=== PATIENT | female | born 2000 | race Caucasian/White ===

== ENCOUNTER 2024-02-19 20:13 | Emergency (ER) | payer SELFPAY ==
[~2024-02-19] VITALS: Ht 160 cm; Wt 110.0 kg
[2024-02-19 20:37] VITALS: O2SAT 100
[2024-02-20] MEDS: METOCLOPRAMIDE HCL 10MG/2ML VIAL IV ONE (00:38)
[2024-02-20] MEDS: DIPHENHYDRAMINE 50MG/ML VIAL IV ONE (00:39)
[2024-02-20] MEDS: KETOROLAC 30MG/ML VIAL IM STA (00:39)
[2024-02-20] MEDS: SODIUM CHLORIDE 0.9% 1,000 ML IV ONE (00:39)
[2024-02-20 01:44] VITALS: BP 132/72; PULSE 100; RESP 20; TEMP 98.9
== END 2024-02-20 01:50 | disposition home or self-care (01) ==
LOC: ER 20:13
DX: G43.909 Migraine, unspecified, not intractable, without status migrainosus (principal)
CPT/HCPCS: 99285; 70450; 96374; 96361; 96375; 96372; J1200; J1885; J2765; J7030

== ENCOUNTER 2024-02-22 10:44 | Inpatient (IN) | payer SELFPAY ==
[~2024-02-22] VITALS: Ht 160 cm; Wt 104.3 kg
[2024-02-22 11:29] LABS: BASOPHILS % 0.4 % (0.0-2.0); EOSINOPHILS % 0.1 % (0.0-5.0); LYMPHOCYTES % 11.2 % (20.0-50.0); MEAN CORPUSCULAR HEMOGLOBIN 21.3 pg (28.0-32.0); MEAN CORPUSCULAR HGB CONC 30.6 g/dL (31.0-37.0); MEAN CORPUSCULAR VOLUME 69.4 fL (81.0-99.0); MEAN PLATELET VOLUME 7.3 fl (7.4-10.4); MONOCYTES % 3.4 % (2.0-8.0); NEUTROPHILS % 84.9 % (40.0-76.0); PLATELET 569 x1000/uL (130-400); RED BLOOD CELL COUNT 3.27 mill/uL (4.2-5.4); RED CELL DISTRIBUTION WIDTH 17.5 % (11.6-14.6); WHITE BLOOD COUNT 11.5 x1000/uL (4.5-11.0)
[2024-02-22 11:30] LABS: DIFFERENTIAL COMMENT 1
[2024-02-22] MEDS: CEFTRIAXONE 2GM/50ML 50 ML IV ONE (11:30)
[2024-02-22] MEDS: DIPHENHYDRAMINE 50MG/ML VIAL IV ONE (11:30)
[2024-02-22] MEDS: DEXAMETHASONE 4MG/ML 1ML VIAL IV ONE (11:30)
[2024-02-22] MEDS: METOCLOPRAMIDE HCL 10MG/2ML VIAL IV ONE (11:30)
[2024-02-22] MEDS: SODIUM CHLORIDE 0.9% 1000ML BAG (SEPSIS BOLUS) IV ONE (11:30)
[2024-02-22 11:32] LABS: ADD RBC MORPHOLOGY YES; HEMATOCRIT. 22.7 % (36.0-48.0)
[2024-02-22 12:03] LABS: HCG SCREEN NEGATIVE
[2024-02-22 12:06] LABS: ALANINE AMINOTRANSFERASE 12 IU/L (10-49); ALBUMIN 4.7 g/dL (3.2-4.8); ASPARTATE AMINOTRANSFERASE 17 IU/L (<34); BILIRUBIN TOTAL 0.3 mg/dL (0.1-1.0); CALCIUM 8.5 mg/dL (8.7-10.4); CARBON DIOXIDE 24 mEq/L (21-32); CHLORIDE 104 mEq/L (98-107); CREATININE 0.6 mg/dL (0.6-1.0); GLUCOSE 137 mg/dL (70-105); POTASSIUM 3.9 mEq/L (3.5-5.1); PROTEIN TOTAL 7.2 g/dL (6.0-8.3); SODIUM 136 mEq/L (136-145); UREA NITROGEN BLOOD 10 mg/dL (9-23)
[2024-02-22 12:07] LABS: PROTHROMBIN TIME 11.3 sec (9.6-11.0)
[2024-02-22 12:12] LABS: PLATELET ESTIMATE INCREASED
[2024-02-22 12:13] LABS: ANISOCYTOSIS 1+; HYPOCHROMASIA 1+; MICROCYTOSIS 3+
[2024-02-22 15:44] LABS: CLARITY URINE CLEAR (CLEAR); COLOR URINE YELLOW (YELLOW); GLUCOSE URINE NEGATIVE (NEGATIVE); KETONES URINE 1+ (NEGATIVE); LEUKOCYTE ESTERASE URINE NEGATIVE (NEGATIVE); NITRITE URINE NEGATIVE (NEGATIVE); OCCULT BLOOD URINE NEGATIVE (NEGATIVE); PROTEIN URINE TRACE (NEGATIVE); SPECIFIC GRAVITY URINE 1.029 (1.005-1.030)
[2024-02-22 16:00] LABS: *AMPHETAMINES SCREEN URINE NEGATIVE (NEGATIVE); *BARBITURATES SCREEN URINE NEGATIVE (NEGATIVE); *BENZODIAZEPINES SCREEN URINE NEGATIVE (NEGATIVE); *COCAINE SCREEN URINE NEGATIVE (NEGATIVE); CANNABINOID URINE SCREEN PRESUMPTIVE POSITIVE (NEGATIVE); ECSTASY MDMA SCREEN URINE NEGATIVE (NEGATIVE); METHADONE URINE SCREEN Neg (NEGATIVE); OPIATES URINE SCREEN NEGATIVE (NEGATIVE); PHENCYCLIDINE URINE SCREEN NEGATIVE (NEGATIVE)
[2024-02-22 16:29] LABS: BACTERIA URINE 1+; RBC URINE 0-2 /hpf (0-2); SQUAMOUS EPITHELIAL CELL URINE 1+ /lpf (RARE/1+)
[2024-02-22] MEDS: VANCOMYCIN 1G PREMIX 200 ML IV ONE (16:30)
[2024-02-22] MEDS ORDERED: GUAIFENESIN 200MG/10ML SUGAR FREE UDC PO PRN (16:45)
[2024-02-22] MEDS ORDERED: KETOROLAC 30MG/ML VIAL IV PRN (16:45)
[2024-02-22] MEDS ORDERED: MAGNESIUM/ALUMINUM HYDROXIDE/SIMETHICONE 30ML UDC PO PRN (16:45)
[2024-02-22] MEDS ORDERED: IPRATROPIUM/ALBUTEROL 0.5-3(2.5)MG/3ML NEB HHN PRN (16:45)
[2024-02-22] MEDS ORDERED: CLONIDINE 0.1MG TABLET PO PRN (16:45)
[2024-02-22] MEDS ORDERED: DOCUSATE SODIUM 100MG CAPSULE PO PRN (16:45)
[2024-02-22] MEDS ORDERED: ACETAMINOPHEN 325MG TABLET PO PRN ×2 (16:45)
[2024-02-22] MEDS ORDERED: ONDANSETRON HCL 4MG/2ML INJ IV PRN (16:45)
[2024-02-22 17:50] LABS: HEMATOCRIT 26.9 % (36.0-48.0); HEMOGLOBIN 8.5 g/dL (12.0-16.0)
[2024-02-22 18:23] LABS: CHOLESTEROL 188 mg/dL (<200); HDL CHOLESTEROL 41 mg/dL (>65); IRON 27 ug/dL (50-170); LDL CHOLESTEROL 127 mg/dL (5-100); PHOSPHORUS 1.6 mg/dL (2.5-4.9); T4 FREE 1.23 ng/dL (0.89-1.76); THYROID STIMULATING HORMONE 0.43 uIU/mL (0.55-4.78); TOTAL IRON BINDING CAPACITY 274 ug/dl (250-425); TRIGLYCERIDE 113 mg/dL (0-150)
[2024-02-22] MEDS: PANTOPRAZOLE SODIUM 40 MG/VIAL IV SCH (18:29)
[2024-02-22 18:32] LABS: HAPTOGLOBIN 242 mg/dL (40-280)
[2024-02-22 19:00] VITALS: BP 137/77; PULSE 105; RESP 20; TEMP 99.9
[2024-02-22 20:00] VITALS: BP 137/77; PULSE 105; RESP 20; TEMP 99.9
[2024-02-22 23:59] LABS: CREATINE KINASE 89 IU/L (34-145); CREATINE KINASE MB FRACTION 0.8 ng/mL (0.5-3.6)
[2024-02-23] VITALS: BP 116/66; PULSE 99; RESP 19; TEMP 97.9
[2024-02-23 00:11] LABS: TROPONIN I HIGH SENSITIVITY < 4 ng/L (3.0-34)
[2024-02-23 04:00] VITALS: BP 117/72; PULSE 93; RESP 19; TEMP 97.5
[2024-02-23] MEDS: VANCOMYCIN 1,250 MG in DEXT 5% WATER 250 ML IV SCH ×2 (05:03→14:45)
[2024-02-23 07:03] LABS: BASOPHILS % 0.5 % (0.0-2.0); DIFFERENTIAL COMMENT 0; HEMATOCRIT. 27.7 % (36.0-48.0); HEMOGLOBIN. 8.7 g/dL (12.0-16.0); LYMPHOCYTES % 11.1 % (20.0-50.0); MEAN CORPUSCULAR HEMOGLOBIN 22.7 pg (28.0-32.0); MEAN CORPUSCULAR HGB CONC 31.3 g/dL (31.0-37.0); MEAN CORPUSCULAR VOLUME 72.4 fL (81.0-99.0); MEAN PLATELET VOLUME 7.7 fl (7.4-10.4); MONOCYTES % 3.6 % (2.0-8.0); NEUTROPHILS % 84.8 % (40.0-76.0); PLATELET 545 x1000/uL (130-400); RED BLOOD CELL COUNT 3.82 mill/uL (4.2-5.4); WHITE BLOOD COUNT 13.4 x1000/uL (4.5-11.0)
[2024-02-23 07:29] LABS: ALANINE AMINOTRANSFERASE 11 IU/L (10-49); ALBUMIN 4.6 g/dL (3.2-4.8); ASPARTATE AMINOTRANSFERASE 14 IU/L (<34); BILIRUBIN TOTAL 0.3 mg/dL (0.1-1.0); CALCIUM 8.7 mg/dL (8.7-10.4); CARBON DIOXIDE 23 mEq/L (21-32); CHLORIDE 108 mEq/L (98-107); CREATINE KINASE 77 IU/L (34-145); CREATINE KINASE MB FRACTION 0.8 ng/mL (0.5-3.6); CREATININE 0.6 mg/dL (0.6-1.0); GLUCOSE 106 mg/dL (70-105); PHOSPHORUS 2.6 mg/dL (2.5-4.9); POTASSIUM 3.8 mEq/L (3.5-5.1); PROTEIN TOTAL 7.3 g/dL (6.0-8.3); SODIUM 139 mEq/L (136-145); UREA NITROGEN BLOOD 10 mg/dL (9-23)
[2024-02-23 07:38] LABS: TROPONIN I HIGH SENSITIVITY < 4 ng/L (3.0-34)
[2024-02-23 08:00] VITALS: BP 124/76; PULSE 84; RESP 20; TEMP 97.1
[2024-02-23] MEDS ORDERED: CEFTRIAXONE 2GM/50ML 50 ML IV SCH (09:00)
[2024-02-23] MEDS ORDERED: LIDOCAINE HCL 1% 10 MG/ML 10ML VIAL ONE (10:01)
[2024-02-23 12:11] LABS: CSF TOTAL VOLUME 10.5 mL
[2024-02-23] MEDS: IRON SUCROSE COMPLEX 100 MG/5 ML ML IV SCH (12:14)
[2024-02-23] MEDS: CEFTRIAXONE 2GM/50ML 50 ML IV SCH (12:14)
[2024-02-23 12:30] LABS: CSF APPEARANCE CLEAR, COLORLESS (CLEAR)
[2024-02-23 12:47] LABS: GLUCOSE CSF 84 mg/dL (41-75)
[2024-02-23 12:52] LABS: CSF WHITE BLOOD CELL 2 /cu mm (0-10)
[2024-02-23 16:00] VITALS: BP 122/67; PULSE 81; RESP 18; TEMP 97
[2024-02-23 20:00] VITALS: BP 108/71; PULSE 80; RESP 18; TEMP 97.2
[2024-02-23] MEDS: ATORVASTATIN CALCIUM 40MG TABLET PO SCH (21:11)
[2024-02-23] MEDS: CEFTRIAXONE 2GM/50ML 50ML IV SCH (23:56)
[2024-02-24] VITALS: BP 98/50; PULSE 92; RESP 19; TEMP 97.3
[2024-02-24 03:12] LABS: BASOPHILS % 1.1 % (0.0-2.0); DIFFERENTIAL COMMENT 0; EOSINOPHILS % 1.2 % (0.0-5.0); HEMATOCRIT. 26.6 % (36.0-48.0); HEMOGLOBIN. 8.2 g/dL (12.0-16.0); LYMPHOCYTES % 37.4 % (20.0-50.0); MEAN CORPUSCULAR HEMOGLOBIN 22.3 pg (28.0-32.0); MEAN CORPUSCULAR HGB CONC 30.9 g/dL (31.0-37.0); MEAN CORPUSCULAR VOLUME 72.2 fL (81.0-99.0); MEAN PLATELET VOLUME 7.3 fl (7.4-10.4); MONOCYTES % 7.2 % (2.0-8.0); NEUTROPHILS % 53.1 % (40.0-76.0); PLATELET 488 x1000/uL (130-400); RED BLOOD CELL COUNT 3.69 mill/uL (4.2-5.4); RED CELL DISTRIBUTION WIDTH 18.7 % (11.6-14.6); WHITE BLOOD COUNT 10.7 x1000/uL (4.5-11.0)
[2024-02-24 03:31] LABS: CALCIUM 8.2 mg/dL (8.7-10.4); CARBON DIOXIDE 24 mEq/L (21-32); CHLORIDE 107 mEq/L (98-107); CREATININE 0.7 mg/dL (0.6-1.0); GLUCOSE 98 mg/dL (70-105); PHOSPHORUS 3.9 mg/dL (2.5-4.9); POTASSIUM 3.9 mEq/L (3.5-5.1); SODIUM 138 mEq/L (136-145); UREA NITROGEN BLOOD 12 mg/dL (9-23)
[2024-02-24 04:00] VITALS: BP 108/76; PULSE 86; RESP 18; TEMP 98
[2024-02-24 07:56] VITALS: BP 112/72; PULSE 90; RESP 18; TEMP 98.7
[2024-02-24 11:53] VITALS: BP_SYST 103; BP_SYST 112; BP_DIAS 39; BP_DIAS 72; PULSE 78; PULSE 90; RESP 18; TEMP 98.4; TEMP 98.7
[2024-02-24] MEDS: VANCOMYCIN 1,250 MG in DEXT 5% WATER 250 ML IV SCH (14:25)
[2024-02-24 15:58] VITALS: BP 101/58; PULSE 85; RESP 18; TEMP 98.3
[2024-02-24 20:00] VITALS: BP 100/63; PULSE 92; RESP 20; TEMP 98.4
[2024-02-25] VITALS: BP 105/56; PULSE 101; RESP 20; TEMP 97.5
[2024-02-25 04:00] VITALS: BP 107/51; PULSE 98; RESP 20; TEMP 97.7
[2024-02-25 06:58] LABS: HEMATOCRIT 28.4 % (36.0-48.0); HEMOGLOBIN 9.2 g/dL (12.0-16.0); MEAN CORPUSCULAR HEMOGLOBIN 23.2 pg (28.0-32.0); MEAN CORPUSCULAR HGB CONC 32.3 g/dL (31.0-37.0); MEAN CORPUSCULAR VOLUME 71.8 fL (81.0-99.0); PLATELET 502 x1000/uL (130-400); RED BLOOD CELL COUNT 3.95 mill/uL (4.2-5.4); RED CELL DISTRIBUTION WIDTH 18.4 % (11.6-14.6); WHITE BLOOD COUNT 11.2 x1000/uL (4.5-11.0)
[2024-02-25 07:17] LABS: CARBON DIOXIDE 26 mEq/L (21-32); CHLORIDE 105 mEq/L (98-107); CREATININE 0.7 mg/dL (0.6-1.0); GLUCOSE 89 mg/dL (70-105); PHOSPHORUS 3.4 mg/dL (2.5-4.9); POTASSIUM 3.8 mEq/L (3.5-5.1); SODIUM 139 mEq/L (136-145); UREA NITROGEN BLOOD 9 mg/dL (9-23)
[2024-02-25 08:14] VITALS: BP 99/60; PULSE 89; RESP 18; TEMP 98.2
[2024-02-25 12:06] VITALS: BP 109/55; PULSE 100; RESP 20; TEMP 98.7
[2024-02-25] MEDS ORDERED: GADOTERATE MEGLUMINE 5 MMOL/10 ML VIAL IV ONE (12:25)
[2024-02-25] MEDS ORDERED: FERR-71 MT (15:00)
[2024-02-25] MEDS ORDERED: ONDA8TAB13 MT (15:00)
[2024-02-25] MEDS ORDERED: IBUP-2029 MT (15:00)
[2024-02-25] MEDS ORDERED: LIP40 PO (15:00)
[2024-02-25 16:15] VITALS: BP 114/69; PULSE 88; RESP 20; TEMP 98.7
[2024-02-25 16:40] VITALS: BP 114/69; PULSE 88; TEMP 98.7; O2SAT 97
== END 2024-02-25 17:00 | disposition home or self-care (01) | DRG 49 ==
LOC: ER 10:44 → EDBEDREQTM 13:01 → EDBEDREQ 13:01 → 7WST 18:43
PROVIDERS: ADMIT Internal Medicine; ATTEND Internal Medicine
PROC: 30233N1 Transfusion of Nonautologous Red Blood Cells into Peripheral Vein, Percutaneous Approach (ICD-10-PCS; principal; 2024-02-22)
PROC: 009U3ZZ Drainage of Spinal Canal, Percutaneous Approach (ICD-10-PCS; 2024-02-23)
DX: G00.9 Bacterial meningitis, unspecified (principal); D50.9 Iron deficiency anemia, unspecified; G43.909 Migraine, unspecified, not intractable, without status migrainosus; G44.209 Tension-type headache, unspecified, not intractable; E66.01 Morbid (severe) obesity due to excess calories; Z82.49 Family history of ischemic heart disease and other diseases of the circulatory system; Z68.41 Body mass index [BMI] 40.0-44.9, adult; T38.0X5A Adverse effect of glucocorticoids and synthetic analogues, initial encounter; N92.0 Excessive and frequent menstruation with regular cycle; D75.838 Other thrombocytosis; D72.829 Elevated white blood cell count, unspecified; G03.0 Nonpyogenic meningitis
CPT/HCPCS: 36415; 62328; 70553; 71045; 76830; 76856; 80048; 80053; 80061; 80202; 80305; 81003; 82550; 82553; 82728; 82945; 83010; 83036; 83540; 83550; 83605; 83735; 83880; 84100; 84145; 84157; 84439; 84443; 84484; 84703; 85014; 85018; 85025; 85027; 85044; 85379; 86592; 86850; 86900; 86920; 87070; 87529; 93005; 99291; A9577; C1893; C9113; J0696; J1100; J1200; J2405; J2765; J3370; J3490; J7030; J7060; P9016